=== PATIENT | female | born 1980 | race Two or more races ===

== ENCOUNTER 2016-12-05 03:41 | Emergency (ER) | payer BC, MEDICAID ==
[~2016-12-05] VITALS: Ht 160 cm; Wt 68.0 kg
[2016-12-05 06:11] VITALS: BP 114/69
== END 2016-12-05 06:11 | disposition home or self-care (01) ==
LOC: ER 03:41
DX: Z13.89 Encounter for screening for other disorder (principal); F41.9 Anxiety disorder, unspecified
CPT/HCPCS: 70486; 71020; 74000; 99284; A4606; Z7610